=== PATIENT | female | born 1995 | race Caucasian/White ===

== ENCOUNTER 2017-10-20 16:21 | Emergency (ER) | payer SELFPAY ==
--- NOTE | 2017-10-20 16:52 | UC ---
Cardiac HPI - HPI Summary HPI Summary: Patient to urgent care today with chief complaint of chest pain. Upon further assessment patient describes pain as being fleeting and sharp comes like stabs of pain through her rest and chest wall patient denies shortness of breath nausea or continuous chest pain or discomfort. 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 - History of Current Complaint Chief Complaint: UCChestPain Stated Complaint: CHEST PAIN Time Seen by Provider: 10/20/17 16:46 Hx Obtained From: Patient Hx Last Menstrual Period: 09/28/17 Onset/Duration: Sudden Onset, Lasting Days - 2, Still Present Timing: Constant Initial Severity: Moderate Current Severity: None Pain Intensity: 5 Chest Pain Location: Left Anterior Character: Sharp/Stabbing Aggravating Factor(s): Exertion Alleviating Factor(s): Spontaneous Resolution Associated Signs & Symptoms: Positive: Negative - Allergy/Home Medications Allergies/Adverse Reactions: Allergies Allergy/AdvReac Type Severity Reaction Status Date / Time aspirin Allergy Unknown Unknown Verified 10/20/17 16:25 Reaction Details morphine Allergy Unknown Unknown Verified 10/20/17 16:25 Reaction Details PMH/Surg Hx/FS Hx/Imm Hx Previously Healthy: Yes - with just - Surgical History Surgical History: Yes Surgery Procedure, Year, and Place: T & A - Family History Known Family History: Positive: None - Social History Occupation: Employed Full-time Lives: With Family Alcohol Use: None Substance Use Type: None Smoking Status (MU): Former Smoker Type: Cigarettes Length of Time of Smoking/Using Tobacco: 6 MONTHS When Did the Patient Quit Smoking/Using Tobacco: 2016 - Immunization History Most Recent Tetanus Shot: Age 11 or 12 Vaccination Up to Date: Yes Review of Systems Constitutional: Negative Skin: Negative Eyes: Negative ENT: Negative Respiratory: Negative Cardiovascular: Chest Pain - Fleeting stabbing anterior left side chest pain Gastrointestinal: Negative Genitourinary: Negative Motor: Negative Neurovascular: Negative Musculoskeletal: Negative Neurological: Negative Psychological: Negative Is Patient Immunocompromised?: No All Other Systems Reviewed And Are Negative: Yes Physical Exam Triage Information Reviewed: Yes Appearance: Well-Appearing, No Pain Distress, Obese Vital Signs: Initial Vital Signs Temp 98.9 F 10/20/17 16:37 Pulse 72 10/20/17 16:37 Resp 18 10/20/17 16:37 BP 129/70 10/20/17 16:37 Pulse Ox 100 10/20/17 16:37 Vital Signs Reviewed: Yes Eye Exam: Normal Eyes: Positive: Conjunctiva Clear ENT Exam: Normal ENT: Positive: Normal ENT inspection, Hearing grossly normal, Pharynx normal, TMs normal, Uvula midline. Negative: Nasal congestion, Trismus, Muffled voice, Hoarse voice, Dental tenderness, Sinus tenderness Dental Exam: Normal Neck exam: Normal Neck: Positive: Supple, Nontender, No Lymphadenopathy Respiratory Exam: Normal Respiratory: Positive: Chest non-tender, Lungs clear, Normal breath sounds, No respiratory distress, No accessory muscle use Cardiovascular Exam: Normal Cardiovascular: Positive: RRR, No Murmur, Pulses Normal, Brisk Capillary Refill Abdominal Exam: Normal Abdomen Description: Positive: Nontender, No Organomegaly, Soft. Negative: CVA Tenderness (R), CVA Tenderness (L) Musculoskeletal Exam: Normal Musculoskeletal: Positive: Strength Intact, ROM Intact, No Edema Neurological Exam: Normal Neurological: Positive: Alert, Muscle Tone Normal Psychological Exam: Normal Skin Exam: Normal Diagnostics - EKG Cardiac Rate: NL Cardiac Rhythm: Sinus: Normal Ectopy: None ST Segment: Normal - Assessment/Plan Course Of Treatment: increase fluids use NSAIDs from the clock for the next several days, follow with PCP return for any problems - Clinical Impression Provider Diagnoses: Costochondritis, noncardiac chest pain Discharge - Sign-Out/Discharge Documenting (check all that apply): Discharge - Discharge Plan Condition: Stable Disposition: HOME Prescriptions: Naproxen [Naproxen EC 500 MG TAB] 500 mg PO BID PRN #30 tablet.dr SAUCEDA Reason: pain Patient Education Materials: Costochondritis (ED), Noncardiac Chest Pain (ED) Referrals: [facility] [Outside] - 2 Days Bin Montenegro MD [Medical Doctor] - 2 Days - Billing Disposition and Condition Condition: STABLE Disposition: HOME
[2017-10-20 16:59] VITALS: BP 129/70
== END 2017-10-20 17:05 | disposition home or self-care (01) ==
LOC: UCCORT 16:21
DX: M94.0 Chondrocostal junction syndrome [Tietze] (principal); R07.89 Other chest pain; Z88.5 Allergy status to narcotic agent; Z88.6 Allergy status to analgesic agent; Z87.891 Personal history of nicotine dependence
CPT/HCPCS: 93005; 99202; G0463

== ENCOUNTER 2018-04-13 14:59 | Emergency (ER) | payer BC ==
[2018-04-13] MEDS ORDERED: Albuterol 2.5 MG/3 ML NEB.SOL* (0.083%) INH ONE ×2 (15:13→16:37)
[2018-04-13] MEDS ORDERED: predniSONE TAB* 20 MG PO ONE (15:13)
--- NOTE | 2018-04-13 15:23 | UC ---
UC General HPI - HPI Summary HPI Summary: patient is complaining of 2 day history of sore throat, headache, cough and back pain. She admits to shortness breath, wheezing and subjective fever and chills. She reports history of asthma but has not required treatment in some time. - History of Current Complaint Stated Complaint: COUGH, ST,NECK/BACK/HEAD COMPLAINT Time Seen by Provider: 04/13/18 15:09 Hx Obtained From: Patient Hx Last Menstrual Period: 09/28/17 Onset/Duration: Gradual Onset Timing: Constant Associated Signs & Symptoms: Positive: Back Pain, Cough, Fever, SOB, Wheezing - Allergy/Home Medications Allergies/Adverse Reactions: Allergies Allergy/AdvReac Type Severity Reaction Status Date / Time aspirin Allergy Unknown Unknown Verified 04/13/18 15:19 Reaction Details morphine Allergy Unknown Unknown Verified 04/13/18 15:19 Reaction Details PMH/Surg Hx/FS Hx/Imm Hx Respiratory History: Asthma - Surgical History Surgical History: Yes Surgery Procedure, Year, and Place: T & A - Family History Known Family History: Positive: None - Social History Occupation: Employed Full-time Alcohol Use: None Substance Use Type: None Smoking Status (MU): Former Smoker Type: Cigarettes Length of Time of Smoking/Using Tobacco: 6 MONTHS When Did the Patient Quit Smoking/Using Tobacco: 2017 - Immunization History Most Recent Tetanus Shot: Age 11 or 12 Vaccination Up to Date: Yes Review of Systems Constitutional: Fever, Chills Skin: Negative Eyes: Negative ENT: Negative Respiratory: Shortness Of Breath, Cough Cardiovascular: Negative Gastrointestinal: Negative Genitourinary: Negative Motor: Negative Neurovascular: Negative Musculoskeletal: Other: - Back pain with coughing Neurological: Negative Psychological: Negative Is Patient Immunocompromised?: No All Other Systems Reviewed And Are Negative: Yes Physical Exam Triage Information Reviewed: Yes Appearance: Well-Appearing Vital Signs Reviewed: Yes Eyes: Positive: Conjunctiva Clear ENT: Positive: Pharyngeal erythema, TMs normal. Negative: Nasal congestion, Nasal drainage Neck: Positive: Supple, Nontender, No Lymphadenopathy Respiratory: Positive: Decreased breath sounds, Other: - Persistent bronchospastic congested cough Cardiovascular: Positive: RRR, No Murmur Abdomen Description: Positive: Nontender, No Organomegaly, Soft. Negative: Distended, Guarding Bowel Sounds: Positive: Present Musculoskeletal: Positive: ROM Intact Neurological: Positive: Alert Psychological: Positive: Age Appropriate Behavior Skin Exam: Other - Flushed and warm. Diagnostics - Laboratory Diagnostic Studies Completed/Ordered: rapid strep=negative - Radiology No standard instances Radiology Interpretation Completed By: Radiologist - CXR=No radiographic evidence of acute cardiopulmonary disease. Re-Evaluation - Re-Evaluation First Eval Re-Evaluation Time: 16:02 Change: Unchanged - PT FEELS UNCHANGED BUT AERATION IMPROVED AND LOCAL WHEEZING RLL. COUGH IS LESS BRONCHOSPASTIC. Second Eval Re-Evaluation Time: 17:14 Change: Improved - MUCH LESS COUGH. PT STATES FEELING IMPROVED. HR DOWN TO 112 AFTER NEB TX #2 WHICH MAY CAUSE SOME TACHYCARDIA. FAINT CRACKLES RLL. Course/Dx - Course Course Of Treatment: CXR unremarkable. improved with neb tx and steroids. concern for early pneumonia thus will tx with antibiotic. - Differential Dx - Multi-Symptom Provider Diagnoses: Bronchospasm. Fever. Possible early pneumonia Discharge - Sign-Out/Discharge Documenting (check all that apply): Patient Departure All imaging exams completed and their final reports reviewed: Yes - Discharge Plan Condition: Improved Disposition: HOME Prescriptions: Albuterol HFA INHALER* [Ventolin HFA Inhaler*] 2 puff INH Q6H #1 mdi DOXYcycline CAP(*) [DOXYcycline 100MG CAP(*)] 100 mg PO BID 10 Days #20 cap predniSONE TAB* [Deltasone 20 MG TAB*] 40 mg PO DAILY 4 Days #8 tab Patient Education Materials: Bronchospasm (ED), Fever in Adults (ED) Forms: *Work Release Referrals: [facility] [Outside] - 3 Days Additional Instructions: GO TO THE ER FOR ANY WORSENING. - Billing Disposition and Condition Condition: IMPROVED Disposition: Home
[2018-04-13] MEDS ORDERED: Acetaminophen TAB* 325 MG PO ONE (15:26)
[2018-04-13 16:35] VITALS: BP 136/72
--- NOTE | 2018-04-13 16:36 | RAD ---
INDICATION: Fever and shortness of breath COMPARISON: None TECHNIQUE: PA and lateral views of the chest were obtained. FINDINGS: The heart and mediastinum are normal in size and contour. The lungs are grossly clear. There is no evidence of large pleural effusion. Visualized bones are normal for the patient's age. There is no radiographic evidence of free air beneath the diaphragm IMPRESSION: No radiographic evidence of acute cardiopulmonary disease.
== END 2018-04-13 17:28 | disposition home or self-care (01) ==
LOC: UCCORT 14:59
DX: J98.01 Acute bronchospasm (principal); R50.9 Fever, unspecified; Z88.5 Allergy status to narcotic agent; Z88.6 Allergy status to analgesic agent; Z87.891 Personal history of nicotine dependence
CPT/HCPCS: 71046; 87651; 99213; A9270-GY; G0463; J7512

== ENCOUNTER 2018-12-27 13:39 | Emergency (ER) | payer BC ==
[2018-12-27 14:03] VITALS: BP 146/87
--- NOTE | 2018-12-27 14:14 | UC ---
UC General HPI - HPI Summary HPI Summary: while dressing this am, pt got a sudden pain in the L side of her neck into her L shoulder area while placing her arm through a sleeve on her shirt. pain worsens with movement of her neck, L shoulder and with deep breaths. she denies any hx of injury, cp and sob. - History of Current Complaint Chief Complaint: UCGeneralIllness Stated Complaint: LEFT NECK/BACK/SHOULDER/ARM PAIN Time Seen by Provider: 12/27/18 13:56 Hx Obtained From: Patient Hx Last Menstrual Period: end of 11/2018 Onset/Duration: Sudden Onset Pain Intensity: 7 Associated Signs & Symptoms: Negative: Chest Pain, SOB - Allergy/Home Medications Allergies/Adverse Reactions: Allergies Allergy/AdvReac Type Severity Reaction Status Date / Time aspirin Allergy Unknown Unknown Verified 12/27/18 13:57 Reaction Details morphine Allergy Unknown Unknown Verified 12/27/18 13:57 Reaction Details PMH/Surg Hx/FS Hx/Imm Hx Previously Healthy: Yes - Surgical History Surgical History: Yes Surgery Procedure, Year, and Place: T & A - Family History Known Family History: Positive: None - Social History Occupation: Employed Full-time Alcohol Use: None Substance Use Type: None Smoking Status (MU): Former Smoker Type: Cigarettes Length of Time of Smoking/Using Tobacco: 6 MONTHS When Did the Patient Quit Smoking/Using Tobacco: 2016 - Immunization History Most Recent Tetanus Shot: Age 11 or 12 Vaccination Up to Date: Yes Review of Systems All Other Systems Reviewed And Are Negative: Yes Respiratory: Negative: Shortness Of Breath, Cough Cardiovascular: Negative: Palpitations, Chest Pain Musculoskeletal: Negative: Decreased ROM Neurological: Negative: Weakness, Paresthesia, Numbness Physical Exam Triage Information Reviewed: Yes Appearance: Well-Appearing Vital Signs: Initial Vital Signs Temp 99.1 F 12/27/18 13:58 Pulse 103 12/27/18 13:58 Resp 18 12/27/18 13:58 BP 146/87 12/27/18 13:58 Pulse Ox 100 12/27/18 13:58 Vital Signs Reviewed: Yes Eyes: Positive: Conjunctiva Clear ENT: Positive: Pharynx normal, TMs normal. Negative: Nasal congestion, Nasal drainage Neck: Positive: No Lymphadenopathy, Other: - c-spine is non tender. L side of trapezius mm is tender. turning of head to L and extension at neck reproduces and worsens pt's symptoms. ROM is intact. L shoulder is non tender. LUE has full s/v/m function. thoracic and lumbar spine are non tender. pt has strong symmetrical radial pulses. Respiratory: Positive: Lungs clear, Normal breath sounds, No respiratory distress Cardiovascular: Positive: RRR, No Murmur Abdomen Description: Positive: Nontender, No Organomegaly, Soft. Negative: Distended, Guarding, Pulsatile Mass Bowel Sounds: Positive: Present Neurological: Positive: Alert Psychological: Positive: Age Appropriate Behavior Skin Exam: Normal Skin: Negative: Rashes Diagnostics - EKG Cardiac Rate: NL Cardiac Rhythm: Sinus: Normal Ectopy: None ST Segment: Normal Re-Evaluation - Re-Evaluation First Eval Re-Evaluation Time: 15:35 Change: Improved - PAIN MUCH IMPROVED AND MUCH BETTER ROM IN NECK. Course/Dx - Course Course Of Treatment: BP VISIT RELATED. - Differential Dx - Multi-Symptom Differential Diagnoses: Other - NO CONCERN FOR CARDIOPULMNARY PATHOLOGY OR DISSECTION/ANEURYSM - Diagnoses Provider Diagnosis: Trapezius muscle strain Discharge - Sign-Out/Discharge Documenting (check all that apply): Patient Departure All imaging exams completed and their final reports reviewed: No Studies - Discharge Plan Condition: Stable Disposition: HOME Prescriptions: Cyclobenzaprine TAB* [Flexeril 10 MG TAB*] 10 mg PO TID PRN #10 tab PRN Reason: Pain Naproxen [Naprosyn 500 mg tab] 500 mg PO BID 5 Days #10 tablet Patient Education Materials: Muscle Strain (DC) Referrals: No Primary Care Phys,NOPCP [Primary Care Provider] - Additional Instructions: FOLLOW UP DRAKE PRIMARY CARE IN 3-5 DAYS OF SOONER IF WORSE. - Billing Disposition and Condition Condition: STABLE Disposition: Home
[2018-12-27] MEDS ORDERED: Ketorolac INJ* 60 MG/2 ML VIAL IM ONE (14:24)
== END 2018-12-27 15:55 | disposition home or self-care (01) ==
LOC: UCCORT 13:39
DX: S46.812A Strain of other muscles, fascia and tendons at shoulder and upper arm level, left arm, initial encounter (principal); X50.0XXA Overexertion from strenuous movement or load, initial encounter; Y93.89 Activity, other specified; Y92.9 Unspecified place or not applicable; Z87.891 Personal history of nicotine dependence
CPT/HCPCS: 93005; 96372; 99212; G0463; J1885

== ENCOUNTER 2019-04-05 08:38 | Emergency (ER) | payer BC, OTHER ==
[2019-04-05 09:05] VITALS: BP 127/70
--- NOTE | 2019-04-05 09:25 | UC ---
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 , the patient pulled on her left arm and she felt sudden onset pain to her left shoulder - History of Current Complaint Chief Complaint: UCUpperExtremity Stated Complaint: WC LEFT SHOULDER INJURY Time Seen by Provider: 04/05/19 09:00 Hx Obtained From: Patient Hx Last Menstrual Period: 03/29/19 ?: No Onset/Duration: Sudden Onset, Lasting Days - 1, Still Present Timing: Constant Severity Initially: Moderate Severity Currently: Moderate Pain Intensity: 8 Character: Dull, Aching Aggravating Factor(s): Movement, Lifting, Flexion, Extension, Abduction Alleviating Factor(s): Rest Associated Signs And Symptoms: Positive: Negative - Allergies/Home Medications Allergies/Adverse Reactions: Allergies Allergy/AdvReac Type Severity Reaction Status Date / Time aspirin Allergy Unknown Unknown Verified 04/05/19 09:06 Reaction Details morphine Allergy Unknown Unknown Verified 04/05/19 09:06 Reaction Details Home Medications: Home Medications NK [No Home Medications Reported] 04/05/19 [History Confirmed 04/05/19] PMH/Surg Hx/FS Hx/Imm Hx Respiratory History: Asthma - Surgical History Surgical History: Yes Surgery Procedure, Year, and Place: T & A - Family History Known Family History: Positive: None - Social History Alcohol Use: None Substance Use Type: None Smoking Status (MU): Former Smoker Type: Cigarettes Length of Time of Smoking/Using Tobacco: 6 MONTHS When Did the Patient Quit Smoking/Using Tobacco: 2016 - Immunization History Most Recent Tetanus Shot: Age 11 or 12 Vaccination Up to Date: Yes Review of Systems All Other Systems Reviewed And Are Negative: Yes Constitutional: Positive: Negative Skin: Positive: Negative Eyes: Positive: Negative ENT: Positive: Negative Respiratory: Positive: Negative Is Patient Immunocompromised?: No Physical Exam Triage Information Reviewed: Yes Appearance: Pain Distress, Obese Vital Signs: Initial Vital Signs Temp 98.6 F 04/05/19 09:02 Pulse 71 04/05/19 09:02 Resp 16 04/05/19 09:02 BP 127/70 04/05/19 09:02 Pulse Ox 100 04/05/19 09:02 Vital Signs Reviewed: Yes Eyes: Positive: Conjunctiva Clear ENT Exam: Normal ENT: Positive: Normal ENT inspection, Hearing grossly normal Neck exam: Normal Neck: Positive: Supple, Nontender, No Lymphadenopathy Respiratory: Positive: Chest non-tender, Lungs clear, Normal breath sounds Cardiovascular: Positive: RRR, No Murmur, Pulses Normal Musculoskeletal: Positive: Other: - left shoulder : + diffuse tenderness, no swelling, pain with abduction and extention with limited strength Procedures - Sedation Patient Received Moderate/Deep Sedation with Procedure: No Diagnostics - Radiology No standard instances Radiology Interpretation Completed By: Radiologist Summary of Radiographic Findings: xray left shoulder : IMPRESSION: NO DEFINITE EVIDENCE OF FRACTURE. AN OBLIQUELY ORIENTED LUCENCY EXTENDING THROUGH THE PROXIMAL SHAFT OF THE HUMERUS IS LIKELY RELATED TO A NUTRIENT CHANNEL OR SKINFOLD. CORRELATE WITH POINT TENDERNESS. Shoulder Course/Dx - Differential Dx/Diagnosis Provider Diagnosis: Strain of left shoulder Discharge ED - Sign-Out/Discharge Documenting (check all that apply): Patient Departure All imaging exams completed and their final reports reviewed: Yes - Discharge Plan Condition: Stable Disposition: HOME Patient Education Materials: Shoulder Sprain (ED) Referrals: No Primary Care Phys,NOPCP [Primary Care Provider] - 7 Days - Billing Disposition and Condition Condition: STABLE Disposition: Home
== END 2019-04-05 10:26 | disposition home or self-care (01) ==
LOC: UCCORT 08:38
DX: S46.912A Strain of unspecified muscle, fascia and tendon at shoulder and upper arm level, left arm, initial encounter (principal); J45.909 Unspecified asthma, uncomplicated; Z88.8 Allergy status to other drugs, medicaments and biological substances; Z88.5 Allergy status to narcotic agent; Z87.891 Personal history of nicotine dependence; X50.9XXA Other and unspecified overexertion or strenuous movements or postures, initial encounter; Y92.9 Unspecified place or not applicable
CPT/HCPCS: 84702; 99211; G0463

== ENCOUNTER 2019-09-22 07:02 | Emergency (ER) | payer OTHER ==
[2019-09-22 07:22] VITALS: BP 134/72
[2019-09-22 07:54] LABS: Influenza A Molecular Negative (Negative); Influenza B Molecular Negative (Negative)
== END 2019-09-22 08:30 | disposition home or self-care (01) ==
LOC: UCCORT 07:02